=== PATIENT | male | born 1950 | race Caucasian/White ===

== ENCOUNTER → 2016-04-06 | Outpatient (CLI) | payer MEDICARE, BC ==
[2016-04-06 12:11] LABS: ALT 51 U/L (21-72); AST 39 U/L (17-59); Alkaline Phosphatase 63 U/L (38-126); Anion Gap 13 mmol/L; Blood Urea Nitrogen 19 mg/dL (9-20); Calcium 9.8 mg/dL (8.4-10.2); Carbon Dioxide 24 mmol/L (22-30); Chloride 103 mmol/L (98-107); Cholesterol 155 mg/dL (<200); Glucose 253 mg/dL (74-99); HDL Cholesterol 36 mg/dL (40-60); Non-African American GFR(MDRD) 51 (>60 ml/min/1.73 sqM); Sodium 140 mmol/L (137-145); Total Bilirubin 0.9 mg/dL (0.2-1.3); Total Protein 8.1 g/dL (6.3-8.2); Triglycerides 183 mg/dL (<150)
[2016-04-06 12:17] LABS: Potassium 5.8 mmol/L (3.5-5.1)
== END | disposition home or self-care (01) ==
LOC: LABWHC1 11:06
PROVIDERS: ATTEND Internal Medicine Interventional Cardiology
DX: E78.2 Mixed hyperlipidemia (principal)
CPT/HCPCS: 36415; 80053; 80061

== ENCOUNTER → 2016-10-13 | Outpatient (CLI) | payer MEDICARE, BC ==
[2016-10-13 14:18] LABS: Calcium 9.7 mg/dL (8.4-10.2); Potassium 4.8 mmol/L (3.5-5.1); Total Bilirubin 0.6 mg/dL (0.2-1.3); Total Protein 7.5 g/dL (6.3-8.2)
== END | disposition home or self-care (01) ==
LOC: LABWHC1 13:26
PROVIDERS: ATTEND Internal Medicine Interventional Cardiology
DX: E78.2 Mixed hyperlipidemia (principal)
CPT/HCPCS: 36415; 80053; 80061

== ENCOUNTER → 2017-04-18 | Outpatient (CLI) | payer MEDICARE, BC ==
[2017-04-18 12:47] LABS: Albumin 4.7 g/dL (3.5-5.0); Potassium 4.8 mmol/L (3.5-5.1); Total Bilirubin 0.6 mg/dL (0.2-1.3); Total Protein 7.9 g/dL (6.3-8.2)
== END | disposition home or self-care (01) ==
LOC: LABWHC1 12:02
PROVIDERS: ATTEND Internal Medicine Interventional Cardiology
DX: E78.2 Mixed hyperlipidemia (principal)
CPT/HCPCS: 36415; 80053; 80061

== ENCOUNTER → 2017-06-07 | Outpatient (CLI) | payer MEDICARE, BC ==
[2017-06-07 12:40] LABS: Basophils # (A) 0.1 k/uL (0-0.2); Basophils % (A) 1 %; Eosinophils # (A) 0.2 k/uL (0-0.7); Eosinophils % (A) 4 %; HCT 42.2 % (39.0-53.0); HGB 14.2 gm/dL (13.0-17.5); Lymphocytes # (A) 1.3 k/uL (1.0-4.8); Lymphocytes % (A) 32 %; MCH 31.4 pg (25.0-35.0); MCHC 33.6 g/dL (31.0-37.0); MCV 93.6 fL (80.0-100.0); Mean Platelet Volume 8.1; Monocytes # (A) 0.5 k/uL (0-1.0); Monocytes % (A) 12 %; Neutrophils % (A) 48 %; Platelet Count 205 k/uL (150-450); RDW 13.5 % (11.5-15.5); WBC 4.2 k/uL (3.8-10.6)
[2017-06-07 22:32] LABS: Hemoglobin A1C 7.9 % (4.0-6.0)
== END | disposition home or self-care (01) ==
LOC: LABWHC1 11:45
PROVIDERS: ATTEND Internal Medicine Endocrinology, Diabetes & Metabolism
DX: I10 Essential (primary) hypertension (principal); E78.00 Pure hypercholesterolemia, unspecified; I25.10 Atherosclerotic heart disease of native coronary artery without angina pectoris; E11.65 Type 2 diabetes mellitus with hyperglycemia
CPT/HCPCS: 36415; 82043; 82570; 83036; 85025

== ENCOUNTER → 2017-10-20 | Outpatient (CLI) | payer MEDICARE, BC ==
[2017-10-20 14:07] LABS: Albumin 4.1 g/dL (3.5-5.0); Calcium 9.1 mg/dL (8.4-10.2); Total Bilirubin 0.4 mg/dL (0.2-1.3); Total Protein 6.9 g/dL (6.3-8.2)
== END | disposition home or self-care (01) ==
LOC: LABWHC1 10:36
PROVIDERS: ATTEND Internal Medicine Interventional Cardiology
DX: E78.2 Mixed hyperlipidemia (principal)
CPT/HCPCS: 36415; 80053; 80061

== ENCOUNTER → 2017-12-26 | Outpatient (CLI) | payer MEDICARE, BC ==
[2017-12-26 14:35] LABS: HCT 42.3 % (39.0-53.0); HGB 14.4 gm/dL (13.0-17.5); MCH 32.8 pg (25.0-35.0); MCV 96.5 fL (80.0-100.0); Mean Platelet Volume 7.7; Platelet Count 178 k/uL (150-450); RBC 4.39 m/uL (4.30-5.90); RDW 13.3 % (11.5-15.5); WBC 3.5 k/uL (3.8-10.6)
[2017-12-26 14:51] LABS: Potassium 5.3 mmol/L (3.5-5.1)
== END | disposition home or self-care (01) ==
LOC: LABPAT 13:15
PROVIDERS: ATTEND Internal Medicine Interventional Cardiology
DX: Z01.812 Encounter for preprocedural laboratory examination (principal); I25.10 Atherosclerotic heart disease of native coronary artery without angina pectoris; I10 Essential (primary) hypertension; E78.2 Mixed hyperlipidemia
CPT/HCPCS: 36415; 80051; 82565; 84520; 85027

== ENCOUNTER → 2018-04-05 | Outpatient (CLI) | payer MEDICARE, BC ==
[2018-04-05 15:53] LABS: Albumin 4.6 g/dL (3.80-4.90); Albumin/Globulin Ratio 1.77 (1.60-3.17); Anion Gap 7.8 mmol/L (4.00-12.00); Calcium 9.3 mg/dL (8.7-10.3); Carbon Dioxide 26.2 mmol/L (21.6-31.8); Globulin 2.6 g/dL (1.6-3.3); LDL Cholesterol,Calculated 89.8 mg/dL (0.0-131.0); Total Bilirubin 0.5 mg/dL (0.3-1.2); Total Protein 7.2 g/dL (6.2-8.2); VLDL Calculation 19.2 mg/dL (5.00-40.00)
[2018-04-05 16:42] LABS: Hemoglobin A1C 8.8 % (4.0-6.0)
== END | disposition home or self-care (01) ==
LOC: LABWHC1 10:44
PROVIDERS: ATTEND Internal Medicine Endocrinology, Diabetes & Metabolism
DX: E11.65 Type 2 diabetes mellitus with hyperglycemia (principal)
CPT/HCPCS: 36415; 80053; 80061; 82043; 82570; 82607; 83036

== ENCOUNTER → 2018-07-10 | Outpatient (CLI) | payer MEDICARE, BC ==
[2018-07-10 16:40] LABS: Albumin 4.6 g/dL (3.80-4.90); Albumin/Globulin Ratio 1.84 (1.60-3.17); Calcium 9.1 mg/dL (8.7-10.3); Globulin 2.5 g/dL (1.6-3.3); LDL Cholesterol,Calculated 79.2 mg/dL (0.0-131.0); Potassium 4.8 mmol/L (3.5-5.5); Total Bilirubin 0.4 mg/dL (0.2-1.2); Total Protein 7.1 g/dL (6.2-8.2); VLDL Calculation 21.8 mg/dL (5.00-40.00)
[2018-07-10 19:40] LABS: Hemoglobin A1C 7.5 % (4.0-6.0)
== END ==
LOC: LABWHC1 11:44
PROVIDERS: ATTEND Internal Medicine Endocrinology, Diabetes & Metabolism
DX: E11.65 Type 2 diabetes mellitus with hyperglycemia (principal)
CPT/HCPCS: 36415; 80053; 80061; 83036; 84443

== ENCOUNTER → 2018-09-29 | Outpatient (CLI) | payer MEDICARE, BC ==
[2018-09-29 19:59] LABS: African American GFR (CKD) 49.8 (60.0-200.0); Albumin 4.4 g/dL (3.80-4.90); Albumin/Globulin Ratio 1.83 (1.60-3.17); Anion Gap 8.9 mmol/L (4.00-12.00); BUN/Creat Ratio 17.5 Ratio (12.00-20.00); Calcium 9.1 mg/dL (8.7-10.3); Carbon Dioxide 25.1 mmol/L (21.6-31.8); Globulin 2.4 g/dL (1.6-3.3); Total Bilirubin 0.5 mg/dL (0.3-1.2); Total Protein 6.8 g/dL (6.2-8.2)
== END ==
LOC: LABWHC1 14:03
PROVIDERS: ATTEND Internal Medicine Interventional Cardiology
DX: E78.2 Mixed hyperlipidemia (principal)
CPT/HCPCS: 36415; 80053; 80061

== ENCOUNTER → 2018-11-22 | Outpatient (CLI) | payer MEDICARE, BC ==
[2018-11-22 21:54] LABS: Chol/HDL Ratio 3.38; LDL Cholesterol,Calculated 57.6 mg/dL (0.0-131.0); VLDL Calculation 18.4 mg/dL (5.00-40.00)
== END | disposition home or self-care (01) ==
LOC: LABWHC1 12:12
PROVIDERS: ATTEND Nurse Practitioner Adult Health
DX: E78.2 Mixed hyperlipidemia (principal)
CPT/HCPCS: 36415; 80061; 84450; 84460

== ENCOUNTER → 2019-04-04 | Outpatient (CLI) | payer MEDICARE, BC ==
[2019-04-04 16:21] LABS: Chol/HDL Ratio 3.48; LDL Cholesterol,Calculated 66.2 mg/dL (0.0-131.0); VLDL Calculation 15.8 mg/dL (5.00-40.00)
== END | disposition home or self-care (01) ==
LOC: LABWHC1 11:46
PROVIDERS: ATTEND Nurse Practitioner Adult Health
DX: E78.2 Mixed hyperlipidemia (principal)
CPT/HCPCS: 36415; 80061; 84450; 84460

== ENCOUNTER → 2019-10-04 | Outpatient (CLI) | payer MEDICARE, BC ==
[2019-10-04 18:59] LABS: African American GFR (CKD) 42.9 (60.0-200.0); Albumin 4.5 g/dL (3.80-4.90); Albumin/Globulin Ratio 1.73 (1.60-3.17); Anion Gap 6.6 mmol/L (4.00-12.00); BUN/Creat Ratio 15.56 Ratio (12.00-20.00); Calcium 9.4 mg/dL (8.7-10.3); Carbon Dioxide 26.4 mmol/L (21.6-31.8); Chol/HDL Ratio 3.25; Globulin 2.6 g/dL (1.6-3.3); Potassium 5.1 mmol/L (3.5-5.5); Total Bilirubin 0.5 mg/dL (0.2-1.2); Total Protein 7.1 g/dL (6.2-8.2)
== END | disposition home or self-care (01) ==
LOC: LABWHC1 11:45
PROVIDERS: ATTEND Internal Medicine Interventional Cardiology
DX: E78.2 Mixed hyperlipidemia (principal)
CPT/HCPCS: 36415; 80053; 80061

== ENCOUNTER → 2019-12-11 | Outpatient (CLI) | payer MEDICARE, BC ==
[2019-12-11 22:19] LABS: African American GFR (CKD) 49.5 (60.0-200.0); Albumin 4.5 g/dL (3.80-4.90); Albumin/Globulin Ratio 1.73 (1.60-3.17); Anion Gap 8.7 mmol/L (4.00-12.00); BUN/Creat Ratio 13.13 Ratio (12.00-20.00); Calcium 9.2 mg/dL (8.7-10.3); Carbon Dioxide 24.3 mmol/L (21.6-31.8); Chol/HDL Ratio 3.48; Globulin 2.6 g/dL (1.6-3.3); Non-African American GFR(CKD) 42.7 (60.0-200.0); Potassium 4.8 mmol/L (3.5-5.5); Total Bilirubin 0.5 mg/dL (0.2-1.2); Total Protein 7.1 g/dL (6.2-8.2)
[2019-12-12 05:07] LABS: Urine Creatinine 57.2 mg/dL
== END | disposition home or self-care (01) ==
LOC: LABWHC1 13:17
PROVIDERS: ATTEND Internal Medicine Endocrinology, Diabetes & Metabolism
DX: E11.65 Type 2 diabetes mellitus with hyperglycemia (principal)
CPT/HCPCS: 36415; 80053; 80061; 82043; 82570; 83036; 84443

== ENCOUNTER → 2020-05-14 | Outpatient (CLI) | payer MEDICARE, BC ==
[2020-05-15 03:55] LABS: Chol/HDL Ratio 4.25; LDL Cholesterol,Calculated 65.8 mg/dL (0.0-131.0); VLDL Calculation 25.2 mg/dL (5.00-40.00)
== END | disposition home or self-care (01) ==
LOC: LABWHC1 08:39
PROVIDERS: ATTEND Nurse Practitioner Adult Health
DX: E78.2 Mixed hyperlipidemia (principal)
CPT/HCPCS: 36415; 80061; 84450; 84460

== ENCOUNTER → 2020-06-12 | Outpatient (CLI) | payer MEDICARE, BC ==
--- NOTE | 2020-06-12 14:23 | CONS ---
CONSULTATION DATE OF SERVICE: 06/12/2020 This 69-year-old gentleman who has been re-evaluated in Sleep Center for obstructive sleep apnea-hypopnea syndrome. HISTORY OF PRESENT HISTORY/SLEEP-WAKE EVALUATION: Patient has history of obstructive sleep apnea for about 15 years. Last CPAP titration in 2006. The patient continued to use CPAP equipment every night for the whole night. Sleep schedule presently from 3 a.m. until 10 a.m. Sometimes patient has problems with falling asleep, although no TV in bedroom. He usually sleeps on the back and side position, may wake up from sleep up to 3 times without nocturia. During the day, he may take one nap late afternoon. [place] Sleepiness Scale today is 9. PAST MEDICAL HISTORY: Positive for coronary artery disease, hypertension, hyperlipidemia, diabetes mellitus. PAST SURGICAL HISTORY: Hernia repair, stent insertion to coronary arteries. MEDICATIONS: Plavix 75 mg once a day, metoprolol 100 mg once a day, Imdur 60 mg once a day, simvastatin 40 mg once a day, Tricor 160 mg once a day, Glipizide 10 mg twice a day, aspirin 81 mg once a day, 10 mg once a day, Lantus 40 units at bedtime. SOCIAL HISTORY: Negative for smoking or using alcohol. REVIEW OF SYSTEMS: Sometimes awakenings from sleep. No fevers. No double vision. No recent chest pain. No shortness of breath. No abdominal pain. No bleeding episodes. No blood in the urine. No seizure episodes. FAMILY HISTORY: Hypertension, heart problems, asthma, cancer, diabetes. PHYSICAL EXAMINATION: GENERAL: gentleman without distress. VITAL SIGNS: BP 127/67, HR 65, RR 12, height 5 feet 10 inches, weight 199.6, temperature 97.3, oxygen saturation at room air 96%, BMI 28.5. HEENT: PERRLA, EOMI. Oropharynx low position of soft palate. Mallampati 3. NECK: Supple, no JVD. Thyroid is not palpable. LUNGS: Clear to percussion and to auscultation. Good air exchange. No wheezing or rhonchi. HEART: S1, S2 regular. No murmurs, gallops, or rubs. ABDOMEN: Obese. EXTREMITIES: No clubbing or cyanosis. JAVA SWING DEVELOPER: Awake, alert, and oriented X3. Cranial nerves 2 to 7 intact. There is no fasciculation or atrophy. noted. No focal deficits observed. I checked patient's CPAP unit. CPAP pressure of 11 cm of water. Usage is 29 out of 30 nights for more than 4 hours. Average usage is 6.7 hours per night. Leak is quite high 80 L/minute, but apnea-hypopnea index is only 4.7, which is normal range. IMPRESSION: 1. Obstructive sleep apnea-hypopnea syndrome. The patient demonstrated great compliance with CPAP therapy, benefitting from treatment. 2. Coronary artery disease, status post stent insertions. 3. Hypertension. 4. Diabetes mellitus. 5. Hyperlipidemia. 6. Status post hernia repair. PLAN: 1. The patient will continue to use CPAP equipment every night for the whole night. 2. Sleep hygiene with regular time in bed for 7-1/2 to 8 hours. 3. Prescription for all necessary CPAP supplies, including mask, heated tube, filters, chamber for the machine. 4. Precautions related to driving. No driving if feeling any sleepiness. 5. Follow-up visit in 6 months. Thank you very much for allowing me to participate in management of your patient. Sincerely, Gilbert Paz MD, PhD, FAASM Diplomat of [employer] Director Treasurer of [facility] [place] MMODL / IJN: [id number] /
== END ==
LOC: SLEEP 10:00
PROVIDERS: ATTEND Internal Medicine
DX: G47.33 Obstructive sleep apnea (adult) (pediatric) (principal); I25.10 Atherosclerotic heart disease of native coronary artery without angina pectoris; I10 Essential (primary) hypertension; E11.9 Type 2 diabetes mellitus without complications; Z98.890 Other specified postprocedural states
CPT/HCPCS: 99211

== ENCOUNTER → 2020-08-21 | Outpatient (CLI) | payer MEDICARE, BC ==
[2020-08-21 19:46] LABS: Hemoglobin A1C 7.9 % (4.0-6.0)
[2020-08-21 20:18] LABS: African American GFR (CKD) 49.2 (60.0-200.0); Albumin 4.6 g/dL (3.80-4.90); Albumin/Globulin Ratio 1.7 (1.60-3.17); Anion Gap 6.1 mmol/L (4.00-12.00); BUN/Creat Ratio 16.88 Ratio (12.00-20.00); Calcium 9.2 mg/dL (8.7-10.3); Carbon Dioxide 26.9 mmol/L (21.6-31.8); Chol/HDL Ratio 3.6; Globulin 2.7 g/dL (1.6-3.3); LDL Cholesterol,Calculated 63.2 mg/dL (0.0-131.0); Non-African American GFR(CKD) 42.4 (60.0-200.0); Potassium 4.8 mmol/L (3.5-5.5); Total Bilirubin 0.4 mg/dL (0.3-1.2); Total Protein 7.3 g/dL (6.2-8.2); VLDL Calculation 14.8 mg/dL (5.00-40.00)
[2020-08-22 04:39] LABS: Urine Creatinine 189.5 mg/dL
== END | disposition home or self-care (01) ==
LOC: LABWHC1 11:01
PROVIDERS: ATTEND Internal Medicine Endocrinology, Diabetes & Metabolism
DX: E11.65 Type 2 diabetes mellitus with hyperglycemia (principal)
CPT/HCPCS: 36415; 80053; 80061; 82043; 82570; 83036; 84443

== ENCOUNTER → 2020-11-25 | Outpatient (CLI) | payer MEDICARE, BC ==
[2020-11-27 02:16] LABS: African American GFR (CKD) 42.6 (60.0-200.0); Albumin 4.6 g/dL (3.8-4.9); Albumin/Globulin Ratio 1.7 (1.60-3.17); Anion Gap 14.6 mmol/L (4.00-12.00); BUN/Creat Ratio 14.67 Ratio (12.00-20.00); Blood Urea Nitrogen 26.4 mg/dL (9.0-27.0); Calcium 9.4 mg/dL (8.7-10.3); Carbon Dioxide 19.4 mmol/L (21.6-31.8); Chol/HDL Ratio 3.39 Ratio; Globulin 2.7 g/dL (1.6-3.3); LDL Cholesterol,Calculated 59.3 mg/dL (0.0-131.0); Non-African American GFR(CKD) 36.8 (60.0-200.0); Potassium 4.9 mmol/L (3.5-5.5); Total Bilirubin 0.4 mg/dL (0.30-1.20); Total Protein 7.3 g/dL (6.2-8.2); Triglycerides 98.3 mg/dL (0.00-149.00); VLDL Calculation 19.66 mg/dL (5.00-40.00)
== END | disposition home or self-care (01) ==
LOC: LABWHC1 10:36
PROVIDERS: ATTEND Internal Medicine Interventional Cardiology
DX: E78.2 Mixed hyperlipidemia (principal)
CPT/HCPCS: 36415; 80053; 80061

== ENCOUNTER → 2020-12-18 | Outpatient (CLI) | payer MEDICARE, BC ==
--- NOTE | 2020-12-18 19:49 | SFUN ---
SLEEP CENTER FOLLOW UP NOTE DATE OF SERVICE: 12/18/2020 This 70-year-old gentleman has been followed in Sleep Center for treatment of obstructive sleep apnea-hypopnea syndrome. The patient continues to use his CPAP equipment every night. His machine, which I saw during his previous visit on 06/12/2020, was broken and he started to use his old CPAP unit. He continues to use his CPAP equipment every night. He does not snore with the machine and sleeps well. [place] Sleepiness Scale today is 9. I checked his CPAP unit. Its pressure is 11 cm of water. Usage is 28/30 nights for more than 4 hours, average 6.3 hours per night, which is good compliance. The pressure in the machine is 11 cm of water. The machine does not have information about apnea- hypopnea index, but again during the previous visit with a different machine, with a pressure of 11, apnea-hypopnea index was 4.7, which is in normal range. MEDICATIONS: 1. Isosorbide 60 mg once a day. 2. Clopidogrel 75 mg once a day. 3. Metoprolol 100 mg once a day. 4. Fenofibrate 160 mg once a day. 5. Simvastatin 40 mg once a day. 6. 10 mg once a day. 7. Aspirin 81 mg once a day. 8. Glipizide 10 mg twice a day. 9. Lantus 40 units once a day. PHYSICAL EXAMINATION: GENERAL: Pleasant patient in no distress. VITAL SIGNS: BP 134/69, HR 67, RR 16, height 5 feet 9 inches, weight 200 pounds, which is about the same as during previous visit. Body mass index 29.5, temperature 97.2, oxygen saturation at room air 96%. HEENT: PERRLA, EOMI, evaluation of oropharynx showed tongue protrudes midline. Low position of soft palate; Mallampati III. NECK: Supple, no JVD. Thyroid is not palpable. LUNGS: Clear to percussion and to auscultation. Good air exchange. No wheezing or rhonchi. HEART: S1, S2 regular. No murmurs, gallops, or rubs. ABDOMEN: Soft and nontender. Bowel sounds are present. No organomegaly appreciated. EXTREMITIES: No clubbing or cyanosis. QA CONSULTANT: Awake, alert, and oriented X3. Cranial nerves 2 to 7 intact. There is no fasciculation or atrophy. noted. No focal deficits observed. IMPRESSION: 1. Obstructive sleep apnea-hypopnea syndrome. Patient demonstrated great compliance with treatment, benefitting from treatment. 2. Coronary artery disease, status post stent insertion. 3. Hypertension. 4. Diabetes mellitus. 5. Hyperlipidemia. 6. Status post hernia repair. PLAN: 1. Patient will continue to use PAP equipment every night for the whole night. 2. Sleep hygiene with regular time in bed for at least 7-1/2 to 8 hours. 3. Precautions related to driving. No driving if feeling sleepiness. 4. I will maintain all necessary prescription for PAP supplies including mask, tube, filters. 5. Watching weight. 6. During the next visit, we will consider writing a prescription for a new machine; we should have a new version of ResMed machine available at that time. 7. Follow-up visit in 6 months or earlier if patient has any problems. Thank you very much for allowing me to participate in the management of your patient. Sincerely, Gilbert Paz MD, PhD, FAASM Diplomat of [employer] Sleep Medicine Board of [employer] Manager Packaging of [facility] [place] MMODL / IJN: [id number] /
== END | disposition home or self-care (01) ==
LOC: SLEEP 13:22
PROVIDERS: ATTEND Internal Medicine
DX: G47.33 Obstructive sleep apnea (adult) (pediatric) (principal); I25.10 Atherosclerotic heart disease of native coronary artery without angina pectoris; Z95.5 Presence of coronary angioplasty implant and graft; I10 Essential (primary) hypertension; E11.9 Type 2 diabetes mellitus without complications; E78.5 Hyperlipidemia, unspecified

== ENCOUNTER → 2021-06-18 | Outpatient (CLI) | payer MEDICARE, BC ==
--- NOTE | 2021-06-18 14:59 | SFUN ---
SLEEP CENTER FOLLOW UP NOTE DATE OF SERVICE: 06/18/2021 This 70-year-old gentleman has been followed in Sleep Center for treatment of obstructive sleep apnea-hypopnea syndrome. The patient continues to use his CPAP equipment every night for the whole night and is getting his supplies on time. I checked his CPAP unit. Usage is 30/30 nights for more than 4 hours, average 6.2 hours per night. Pressure is 11 cm of water, starting at 8 cm of water from RAMP. EPR 3. The machine is old and does not have information about apnea-hypopnea index. [place] Sleepiness Scale is 9, which is on the border. MEDICATIONS: Plavix, metoprolol, fenofibrate, simvastatin, Imdur, glyburide, Lantus, gabapentin. PHYSICAL EXAMINATION: GENERAL: Pleasant patient in no distress. VITAL SIGNS: BP 116/70, HR 55, RR 16, weight 197.5, temperature 97.2, oxygen saturation at room air 95%. HEENT: PERRLA, EOMI, evaluation of oropharynx showed tongue protrudes midline. Low position of soft palate; Mallampati III. NECK: Supple, no JVD. Thyroid is not palpable. LUNGS: Clear to percussion and to auscultation. Good air exchange. No wheezing or rhonchi. HEART: S1, S2 regular. No murmurs, gallops, or rubs. ABDOMEN: Soft and nontender. Bowel sounds are present. No organomegaly appreciated. EXTREMITIES: No clubbing or cyanosis. ALUMINUM SIDING APPLICATOR: Awake, alert, and oriented X3. Cranial nerves 2 to 7 intact. There is no fasciculation or atrophy. noted. No focal deficits observed. IMPRESSION: 1. Obstructive sleep apnea-hypopnea syndrome. Patient demonstrated 100% compliance with treatment, benefitting from treatment. His CPAP unit is old and does not have information about apnea-hypopnea index. 2. Coronary artery disease, status post stent insertion. 3. Hypertension. 4. Diabetes mellitus. 5. Hyperlipidemia. 6. Status post hernia repair. PLAN: 1. Prescription to replace CPAP unit. I ordered an automatic machine with range of pressure 7 to 13. 2. Follow-up visit in 30 to 90 days after the patient receives his new CPAP unit to document his compliance with treatment and to make any necessary adjustments. 3. Sleep hygiene with regular time in bed for at least 7-1/2 to 8 hours. 4. Precautions related to driving. No driving if feeling sleepiness. 5. I will maintain all necessary prescription for PAP supplies including mask, tube, filters. 6. Watching weight. Thank you very much for allowing me to participate in the management of your patient. Sincerely, Gilbert Paz MD, PhD, FAASM Diplomat of [employer] Sleep Medicine Board of [employer] Abalone Fisherman of [facility] [place] MMODL / CADYN: [id number] /
== END | disposition home or self-care (01) ==
LOC: SLEEP 13:05
PROVIDERS: ATTEND Internal Medicine
DX: G47.33 Obstructive sleep apnea (adult) (pediatric) (principal); I25.10 Atherosclerotic heart disease of native coronary artery without angina pectoris; I10 Essential (primary) hypertension; E11.9 Type 2 diabetes mellitus without complications; E78.5 Hyperlipidemia, unspecified; Z98.890 Other specified postprocedural states

== ENCOUNTER → 2021-11-24 | Outpatient (CLI) | payer MEDICARE, BC ==
[2021-11-24 15:09] LABS: ALT 20 U/L (10-49); AST 22 U/L (14-35); African American GFR (CKD) 45.7 (60.0-200.0); Albumin 4.4 g/dL (3.8-4.9); Albumin/Globulin Ratio 1.66 (1.60-3.17); Alkaline Phosphatase 63 U/L (41-126); Blood Urea Nitrogen 31.1 mg/dL (9.0-27.0); Calcium 9.3 mg/dL (8.7-10.3); Carbon Dioxide 27.5 mmol/L (20.0-27.5); Chloride 105 mmol/L (96-109); Chol/HDL Ratio 3.58 Ratio; Globulin 2.7 g/dL (1.6-3.3); Glucose 253 mg/dL (70-110); LDL Cholesterol,Calculated 61.2 mg/dL (0.0-131.0); Non-African American GFR(CKD) 39.4 (60.0-200.0); Sodium 140 mmol/L (135-145); Total Protein 7.1 g/dL (6.2-8.2); VLDL Calculation 19.52 mg/dL (5.00-40.00)
== END | disposition home or self-care (01) ==
LOC: LABWHC1 09:32
PROVIDERS: ATTEND Internal Medicine Interventional Cardiology
DX: E78.2 Mixed hyperlipidemia (principal)
CPT/HCPCS: 36415; 80053; 80061

== ENCOUNTER → 2022-03-03 | Outpatient (CLI) | payer MEDICARE, BC ==
[2022-03-03 19:32] LABS: ALT 32 U/L (10-49); AST 23 U/L (14-35); African American GFR (CKD) 70.5 (60.0-200.0); Albumin 4.2 g/dL (3.8-4.9); Albumin/Globulin Ratio 1.47 (1.60-3.17); Alkaline Phosphatase 69 U/L (41-126); BUN/Creat Ratio 12.37 Ratio (12.00-20.00); Blood Urea Nitrogen 14.6 mg/dL (9.0-27.0); Calcium 9.5 mg/dL (8.7-10.3); Carbon Dioxide 26.8 mmol/L (20.0-27.5); Chloride 103 mmol/L (96-109); Chol/HDL Ratio 4.06 Ratio; Globulin 2.9 g/dL (1.6-3.3); Glucose 164 mg/dL (70-110); Non-African American GFR(CKD) 60.9 (60.0-200.0); Potassium 4.9 mmol/L (3.5-5.5); Sodium 140 mmol/L (135-145); Total Protein 7.1 g/dL (6.2-8.2)
== END | disposition home or self-care (01) ==
LOC: LABWHC1 12:41
PROVIDERS: ATTEND Internal Medicine Endocrinology, Diabetes & Metabolism
DX: E11.65 Type 2 diabetes mellitus with hyperglycemia (principal)
CPT/HCPCS: 36415; 80053; 80061; 82043; 82570; 83036; 84443

== ENCOUNTER → 2022-05-17 | Outpatient (CLI) | payer MEDICARE, BC ==
[2022-05-17 23:49] LABS: ALT 47 U/L (10-49); AST 34 U/L (14-35); African American GFR (CKD) 65.8 (60.0-200.0); Albumin 4.6 g/dL (3.8-4.9); Albumin/Globulin Ratio 1.54 (1.60-3.17); Alkaline Phosphatase 87 U/L (41-126); BUN/Creat Ratio 13.44 Ratio (12.00-20.00); Blood Urea Nitrogen 16.8 mg/dL (9.0-27.0); Calcium 9.7 mg/dL (8.7-10.3); Chloride 105 mmol/L (96-109); Chol/HDL Ratio 3.65 Ratio; Glucose 189 mg/dL (70-110); LDL Cholesterol,Calculated 51.6 mg/dL (0.0-131.0); Non-African American GFR(CKD) 56.8 (60.0-200.0); Potassium 5.4 mmol/L (3.5-5.5); Sodium 140 mmol/L (135-145); Total Protein 7.6 g/dL (6.2-8.2)
== END | disposition home or self-care (01) ==
LOC: LABWHC1 13:43
PROVIDERS: ATTEND Internal Medicine Interventional Cardiology
DX: I10 Essential (primary) hypertension (principal); E78.2 Mixed hyperlipidemia
CPT/HCPCS: 36415; 80053; 80061

== ENCOUNTER → 2022-06-03 | Outpatient (CLI) | payer MEDICARE, BC ==
[2022-06-03 17:22] LABS: HCT 37.6 % (39.0-53.0); HGB 12.9 gm/dL (13.0-17.5); MCH 32.7 pg (25.0-35.0); MCHC 34.4 g/dL (31.0-37.0); MCV 95.1 fL (80.0-100.0); Platelet Count 163 k/uL (150-450); RBC 3.95 m/uL (4.30-5.90); RDW 13.9 % (11.5-15.5); WBC 3.9 k/uL (3.8-10.6)
[2022-06-03 17:30] LABS: Potassium 4.5 mmol/L (3.5-5.1)
== END | disposition home or self-care (01) ==
LOC: LABPAT 14:56
PROVIDERS: ATTEND Internal Medicine Interventional Cardiology
DX: Z01.812 Encounter for preprocedural laboratory examination (principal); I25.10 Atherosclerotic heart disease of native coronary artery without angina pectoris
CPT/HCPCS: 80051; 82565; 84520; 85027

== ENCOUNTER 2022-06-09 10:13 | Day surgery (SDC) | payer MEDICARE, BC ==
[~2022-06-09 10:13] MED LIST: ALPRAZolam 0.25 MG TAB PO PRN; ALPRAZolam 0.5 MG TAB PO PRN; ASPIRIN 325 MG TAB PO ONE; ATORVASTATIN 80 MG TAB PO ONE; HEPARIN SODIUM,PORCINE 10,000 UNIT in SODIUM CHLORIDE 0.9% 1,000 ML IRRIGATION PRN; HEPARIN SODIUM,PORCINE 2,500 UNIT in SODIUM CHLORIDE 0.9% 250 ML IRRIGATION PRN; NITROGLYCERIN SL TABS 0.4 MG TAB SUBLINGUAL PRN; SODIUM CHLORIDE 0.9% 1,000 ML in EMPTY BAG 1 BAG IV SCH
[2022-06-09] MEDS ORDERED: SODIUM CHLORIDE 0.9% 1,000 ML IV ONE (10:37)
[2022-06-09 10:50] LABS: Glucose,Whole Blood 162 mg/dL (70-110)
[2022-06-09 10:54] VITALS: RESP 16; TEMP 97.9
[2022-06-09] MEDS ORDERED: fentaNYL (PF) 50 MCG/ML 2 ML AMP IVP ONE (12:30)
[2022-06-09] MEDS ORDERED: LIDOCAINE 1% INJ 10MG/ML (5 ML VIAL-PF) SQ ONE (12:33)
[2022-06-09] MEDS ORDERED: VERAPAMIL SYRINGE (5 MG/10 ML) INTRAARTER ONE (12:34)
[2022-06-09] MEDS ORDERED: MIDAZOLAM 2 MG/2 ML VIAL IVP ONE (12:34)
[2022-06-09] MEDS: HEPARIN SODIUM 1,000 UN/ML (10ML VL) IVP ONE ×2 (12:40→12:52)
[2022-06-09] MEDS ORDERED: NITROGLYCERIN 1000MCG/10ML SYRINGE INTRACORON ONE (12:58)
[2022-06-09] MEDS ORDERED: IOPAMIDOL-370 125ML BTL INJ ONE ×2 (12:59→13:00)
[2022-06-09] MEDS ORDERED: RX INFO: IV CONTRAST WAS GIVEN 1 EACH MISC MISCELLANE PRN (13:29)
[2022-06-09] MEDS ORDERED: NON FORMULARY DRUG (Semaglutide [Ozempic] 0.25 MG/0.2 ML Each) PO SCH (13:30)
[2022-06-09] MEDS ORDERED: SODIUM CHLORIDE 0.9% 1,000 ML IV SCH (13:30)
--- NOTE | 2022-06-09 13:37 | P.CARDCATH ---
Date of Procedure: 06/09/22 Description of Procedure: Cardiac Catheterization: The patient is a 71-year-old male with known history of hypertension, hyperlipidemia, diabetes mellitus, multivessel stenting who has recently been complaining of progressive dyspnea and chest discomfort. Recommendations were made regarding cardiac catheterization, the risks and the complications were discussed with the patient who is in full understanding and agreement. Procedure Description: Patient was brought to labeling associate in fasting semi-sedated state after receiving Fentanyl and Benadryl achieiving moderate conscious sedated state. Using Xylocaine Anesthesia and Seldinger technique, a 6-Zimbabwean sheath was introduced in the right radial artery . Subsequently, selective coronary angiography was performed using a 5-Zimbabwean 3.5 bend Angélica catheter. Multiple views of the coronary artery including hemiaxial views were obtained. The 5-Zimbabwean Pigtail catheter was used to cross the aortic valve and LVEDP was calculated. After removing the catheters a 6-Zimbabwean 3.75 EBU guiding catheter is introduced and after cannulating the left main an Omini Doppler flow wire was advanced into the left circumflex OM and IFR was measured. Following that, catheter and sheath were removed. Hemostasis was obtained with deployment of TR band . There was no immediate complication. Patient was returned to room in stable condition. Of note, the patient received a total of 5500 units of intravenous heparin as well as intra-arterial verapamil. Findings: Left main: This is a large size vessel, bifurcating into LAD and left circumflex, the distal left main has 20% plaque. LAD: This is a large size vessel, reaching to the apex, giving rise to a small diagonal branch in the mid segment. The stented segment in the proximal and mid LAD are patent the mid distal LAD has intimal disease of about 50%, the vessel in caliber in that segment. Left circumflex: This is a large nondominant vessel, giving rise to 2 obtuse marginal branch. The stented segment in the left circumflex obtuse marginal branch is patent with no significant in-stent restenosis. The proximal left circumflex is tortuous and has a 50% plaque. There is of the vessel has no high-grade stenosis. RCA: This is a dominant vessel, moderate caliber. The stented segment in the proximal and mid RCA is patent distal RCA has a 40-50% plaque. Diffuse intimal disease in the PDA was noted with no high-grade stenosis. Left Ventriculogram: Not performed Hemodynamics: There was no gradient across the aortic valve , LVEDP was 15 mmHg Conclusion: 1. Patent stent in the LAD, left circumflex OM and RCA 2. Borderline lesion in the proximal left circumflex with IFR of 0.94, consistent with non-hemodynamically significant lesion 3. Right dominance 4. Normal LVEDP Recommendations: In view of the findings I see no significant progression of disease compared to 2018. I would maximize his medical therapy and depending on his response further recommendations will be made. The findings and the recommendations were discussed with the patient and the family and they were in full understanding and agreement. Duration of sedation is 29 minutes.
[2022-06-09 16:36] VITALS: BP 108/57; PULSE 61
[2022-06-09] MEDS ORDERED: glipiZIDE 10 MG TAB PO SCH (17:30)
[2022-06-09] MEDS ORDERED: ASPIRIN 325 MG TAB PO SCH (21:00)
[2022-06-09] MEDS ORDERED: NON FORMULARY DRUG (Simvastatin [Simvastatin] 40 MG Tablet) PO SCH (21:00)
[2022-06-09] MEDS ORDERED: METOPROLOL TARTRATE 50 MG TAB PO SCH (21:00)
[2022-06-09] MEDS ORDERED: CLOPIDOGREL 75 MG TAB PO SCH (21:00)
[2022-06-09] MEDS ORDERED: GABAPENTIN 300 MG CAP PO SCH (21:00)
[2022-06-09] MEDS ORDERED: ISOSORBIDE MONONITRATE ER 60 MG TAB.ER.24H PO SCH (21:00)
[2022-06-09] MEDS ORDERED: EZETIMIBE 10 MG TAB PO SCH (21:00)
== END 2022-06-09 16:34 | disposition home or self-care (01) ==
LOC: CATHCVL 10:13
PROVIDERS: ATTEND Internal Medicine Interventional Cardiology
DX: I25.10 Atherosclerotic heart disease of native coronary artery without angina pectoris (principal); I73.9 Peripheral vascular disease, unspecified; I12.9 Hypertensive chronic kidney disease with stage 1 through stage 4 chronic kidney disease, or unspecified chronic kidney disease; N18.9 Chronic kidney disease, unspecified; E78.5 Hyperlipidemia, unspecified; E11.9 Type 2 diabetes mellitus without complications; G47.33 Obstructive sleep apnea (adult) (pediatric); Z82.49 Family history of ischemic heart disease and other diseases of the circulatory system; Z79.82 Long term (current) use of aspirin; Z79.899 Other long term (current) drug therapy
CPT/HCPCS: 93458; 93799; J2250; J2001; J3010; J1644; Q9967; 80051; 82565; 84520; 85027

== ENCOUNTER → 2022-12-01 | Outpatient (CLI) | payer MEDICARE, BC ==
[2022-12-01 16:14] LABS: ALT 28 U/L (10-49); AST 26 U/L (14-35); Albumin 4.4 d/dL (3.8-4.9); Albumin/Globulin Ratio 1.69 Ratio (1.60-3.17); Alkaline Phosphatase 78 U/L (41-126); BUN/Creat Ratio 16.46 Ratio (12.00-20.00); Blood Urea Nitrogen 21.4 mg/dL (9.0-27.0); Calcium 9.4 mg/dL (8.7-10.3); Chloride 107 mmol/L (96-109); Chol/HDL Ratio 3.12 Ratio; Globulin 2.6 d/dL (1.6-3.3); Glucose 201 mg/dL (70-110); Potassium 4.9 mmol/L (3.5-5.5); Sodium 141 mmol/L (135-145); Total Bilirubin 0.5 mg/dL (0.3-1.2)
== END | disposition home or self-care (01) ==
LOC: LABWHC1 12:52
PROVIDERS: ATTEND Internal Medicine Interventional Cardiology
DX: E11.65 Type 2 diabetes mellitus with hyperglycemia (principal); E78.2 Mixed hyperlipidemia
CPT/HCPCS: 36415; 80053; 80061; 82043; 82570; 83036; 84443

== ENCOUNTER → 2023-06-08 | Outpatient (CLI) | payer MEDICARE, BC ==
[2023-06-08 18:44] LABS: ALT 40 U/L (10-49); AST 33 U/L (14-35); Albumin 4.7 g/dL (3.8-4.9); Albumin/Globulin Ratio 1.62 Ratio (1.60-3.17); Alkaline Phosphatase 86 U/L (41-126); BUN/Creat Ratio 20.55 Ratio (12.00-20.00); Blood Urea Nitrogen 22.6 mg/dL (9.0-27.0); Calcium 9.3 mg/dL (8.7-10.3); Carbon Dioxide 23.5 mmol/L (21.6-31.8); Chloride 106 mmol/L (96-109); Chol/HDL Ratio 3.36 Ratio; Globulin 2.9 g/dL (1.6-3.3); Glucose 177 mg/dL (70-110); LDL Cholesterol,Calculated 49.3 mg/dL (0.0-131.0); Potassium 4.3 mmol/L (3.5-5.5); Sodium 142 mmol/L (135-145); Total Bilirubin 0.5 mg/dL (0.3-1.2); Total Protein 7.6 g/dL (6.2-8.2)
== END | disposition home or self-care (01) ==
LOC: LABWHC1 13:27
PROVIDERS: ATTEND Internal Medicine Endocrinology, Diabetes & Metabolism
DX: E11.65 Type 2 diabetes mellitus with hyperglycemia (principal)
CPT/HCPCS: 36415; 80053; 80061; 82043; 82570; 83036; 84443

== ENCOUNTER → 2023-10-21 | Outpatient (CLI) | payer MEDICARE, BC | END | disposition home or self-care (01) | LOC: LABWHC1 13:54 | PROVIDERS: ATTEND Internal Medicine Endocrinology, Diabetes & Metabolism | DX: Z53.9 Procedure and treatment not carried out, unspecified reason (principal) ==

== ENCOUNTER → 2023-12-09 | Outpatient (CLI) | payer MEDICARE, BC ==
[2023-12-09 15:18] LABS: ALT 52 U/L (10-49); AST 39 U/L (14-35); Chol/HDL Ratio 3.23 Ratio; LDL Cholesterol,Calculated 40.5 mg/dL (0.0-131.0)
== END | disposition home or self-care (01) ==
LOC: LABWHC1 08:47
PROVIDERS: ATTEND Internal Medicine Interventional Cardiology
DX: E78.2 Mixed hyperlipidemia (principal)
CPT/HCPCS: 36415; 80061; 84450; 84460

== ENCOUNTER 2023-12-21 09:55 | Day surgery (SDC) | payer MEDICARE, BC ==
[~2023-12-21 09:55] MED LIST changes: -ASPIRIN 325 MG TAB PO ONE; -ATORVASTATIN 80 MG TAB PO ONE; +HEPARIN SODIUM,PORCINE (1 ML) 2,500 UNIT in SODIUM CHLORIDE 0.9% 250 ML IRRIGATION PRN; -HEPARIN SODIUM,PORCINE 2,500 UNIT in SODIUM CHLORIDE 0.9% 250 ML IRRIGATION PRN; -SODIUM CHLORIDE 0.9% 1,000 ML in EMPTY BAG 1 BAG IV SCH
[2023-12-21] MEDS: SODIUM CHLORIDE 0.9% 1,000 ML in EMPTY BAG 1 BAG IV SCH (10:14)
[2023-12-21 10:17] LABS: Glucose,Whole Blood 158 mg/dL (70-110)
[2023-12-21] MEDS: ASPIRIN 81 MG PO STA (10:29)
[2023-12-21 10:38] LABS: African American GFR (CKD) 61 (>60 ml/min/1.73 sqM); Anion Gap 9 mmol/L; Blood Urea Nitrogen 23 mg/dL (9-20); Calcium 9.3 mg/dL (8.4-10.2); Carbon Dioxide 27 mmol/L (22-30); Chloride 104 mmol/L (98-107); Glucose 162 mg/dL (74-99); Non-African American GFR(CKD) 53 (>60 ml/min/1.73 sqM); Potassium 4.2 mmol/L (3.5-5.1); Sodium 140 mmol/L (137-145)
[2023-12-21 10:55] LABS: Basophils % (A) 1 %; Eosinophils # (A) 0.2 k/uL (0-0.7); Eosinophils % (A) 3 %; HCT 41.1 % (39.0-53.0); HGB 13.8 gm/dL (13.0-17.5); Lymphocytes # (A) 2.2 k/uL (1.0-4.8); Lymphocytes % (A) 31 %; MCH 32.6 pg (25.0-35.0); MCHC 33.6 g/dL (31.0-37.0); MCV 96.9 fL (80.0-100.0); Mean Platelet Volume 8.2; Monocytes # (A) 0.4 k/uL (0-1.0); Monocytes % (A) 6 %; Neutrophils % (A) 58 %; Platelet Count 157 k/uL (150-450); RBC 4.24 m/uL (4.30-5.90); RDW 13.8 % (11.5-15.5); WBC 6.9 k/uL (3.8-10.6)
[2023-12-21] MEDS: IV FLUID CONTINUATION 1,000 ML IV ONE (12:50)
[2023-12-21] MEDS: fentaNYL (PF) 50 MCG/ML 2 ML AMP IVP ONE (12:50)
[2023-12-21] MEDS: LIDOCAINE 1% INJ 10MG/ML (20 ML MDV) SQ ONE (12:52)
[2023-12-21] MEDS: NITROGLYCERIN 1000MCG/10ML SYRINGE INTRACORON ONE (13:16)
[2023-12-21] MEDS: IOPAMIDOL-370 100ML BTL INJ ONE (13:24)
[2023-12-21] MEDS ORDERED: RX INFO: IV CONTRAST WAS GIVEN 1 EACH MISC MISCELLANE PRN (13:32)
--- NOTE | 2023-12-21 13:39 | P.CARDCATH ---
Date of Procedure: 12/21/23 Description of Procedure: Cardiac Catheterization: The patient is a 73-year-old male with known history of hypertension, hyperlipidemia, diabetes mellitus with multivessel stenting who presented with symptoms of progressive dyspnea fatigue and chest heaviness. Recommendations were made regarding cardiac catheterization, the risks and the complications were discussed with the patient who is in full understanding and agreement. Procedure Description: Patient was brought to company laborer in fasting semi-sedated state after receiving Fentanyl and Benadryl achieiving moderate conscious sedated state. Using Xylocaine Anesthesia and micropuncture technique, a 6-Burmese sheath was introduced in the right femoral artery . Attempt to advance the wire through the right radial artery were unsuccessful. Subsequently, selective coronary angiography was performed using a 6-Burmese 4 bend Angélica catheter. Multiple views of the coronary artery including hemiaxial views were obtained. The 6 Burmese pigtail catheter was used to cross the aortic valve and LVEDP was calculated. Following that, catheter and sheath were removed. Hemostasis was obtained with deployment of an Angio-Seal. There was no immediate complication. Patient was returned to room in stable condition. Findings: Left main: This is a large size vessel, bifurcating into LAD and left circumflex, the left main distally has 10 to 20% plaque with no high-grade stenosis LAD: This is a large size vessel, reaching to the apex with a wraparound apex segment giving rise to a small diagonal branch and mid segment. The stented LAD proximally and in the mid segment are patent with no significant in-stent restenosis. In the mid distal segment there is a tubular long area of stenosis up to 60% with no progression compared to 2023. Left circumflex: This is a large nondominant vessel, giving rise to a large obtuse marginal branch. The stented segment in the obtuse marginal branch is patent. The proximal left circumflex has 30 to 40% plaque with no significant change compared to 2023 RCA: This is a large dominant vessel, bifurcating distally to PDA and PLV. The right coronary artery proximally has a 30% plaque. In the distal segment there is a 50 to 60% plaque similar to what was found in 2023. The PDA has diffuse intimal disease with no high-grade stenosis Left Ventriculogram: Not performed Hemodynamics: There was no gradient across aortic valve, LVEDP was 14-16 mmHg Conclusion: 1. Patent stent in the LAD, left circumflex and RCA 2. Moderate disease in the mid distal LAD with no progression compared to 2022 3. Moderate disease in the distal RCA with no progression compared to 2022 4. Mild disease in the left circumflex Recommendations: At this time I see no significant progression of disease, I would recommend to continue medical therapy with the aggressive coronary risks modification that has been initiated. It is possible that some of the progression of symptoms is related to his bradycardia. His beta-candelaria will be stopped. Depending on his response further adjustment will be made. The findings and the recommendations were discussed with the patient and the family and they were in full understanding and agreement. Duration of sedation is 29 minutes.
[2023-12-21 16:40] LABS: African American GFR (CKD) 62 (>60 ml/min/1.73 sqM); Anion Gap 6 mmol/L; Blood Urea Nitrogen 21 mg/dL (9-20); Calcium 8.8 mg/dL (8.4-10.2); Carbon Dioxide 25 mmol/L (22-30); Chloride 107 mmol/L (98-107); Glucose 194 mg/dL (74-99); Non-African American GFR(CKD) 54 (>60 ml/min/1.73 sqM); Potassium 4.8 mmol/L (3.5-5.1); Sodium 138 mmol/L (137-145)
[2023-12-21 17:07] LABS: Glucose,Whole Blood 199 mg/dL (70-110)
[2023-12-21] MEDS: INSULIN ASPART (NovoLOG) 100 UNIT/ML VIAL SQ SCH (17:24)
[2023-12-21] MEDS: SODIUM CHLORIDE 0.9% 1,000 ML IV SCH (17:27)
[2023-12-21] MEDS: glipiZIDE 10 MG TAB PO SCH (18:47)
[2023-12-21] MEDS: ASPIRIN 325 MG TAB PO STA (19:31)
[2023-12-21] MEDS: ATORVASTATIN 80 MG TAB PO STA (19:31)
[2023-12-21 20:00] LABS: Glucose,Whole Blood 169 mg/dL (70-110)
[2023-12-21] MEDS: GABAPENTIN 300 MG CAP PO SCH (20:42)
[2023-12-21] MEDS: ASPIRIN 81 MG PO SCH (20:42)
[2023-12-21] MEDS: ATORVASTATIN 20 MG TAB PO SCH (20:42)
[2023-12-21] MEDS: EZETIMIBE 10 MG TAB PO SCH (20:42)
[2023-12-21] MEDS: INSULIN DETEMIR (LEVEMIR) 100 UNIT/ML SYR SQ SCH (20:43)
[2023-12-22 05:56] LABS: Glucose,Whole Blood 98 mg/dL (70-110)
[2023-12-22 07:22] VITALS: BP 141/61; RESP 17; TEMP 97.8
--- NOTE | 2023-12-22 07:42 | P.PN ---
Subjective Progress Note Date: 12/22/23 PROGRESS NOTE The patient is a 73-year-old male with a known history of multivessel stenting, history of diabetes, hypertension and hyperlipidemia who presented with symptoms of chest comfort, fatigue and dyspnea. He underwent coronary angiography that showed no significant progression of disease since 2022. He had sinus bradycardia and it was felt that that could be exacerbating his symptoms. He is feeling well this morning. He has no significant chest discomfort. His beta- candelaria was stopped yesterday. Medications: Ezetimibe 10 mg daily, aspirin, isosorbide mononitrate 60 mg daily, insulin, glipizide, simvastatin, Ozempic, Neurontin PHYSICAL EXAMINATION: Blood pressure 138/60 heart rate 37 LUNGS: Clear to auscultation HEART: Regular rate and rhythm, S1, S2. No S3. Systolic ejection murmur ABDOMEN: Soft, nontender, no organomegaly EXTREMETIES: No edema, right groin no hematoma LAB: Pending IMPRESSION: 1. Symptoms of progressive dyspnea and chest discomfort in a patient with multivessel disease. No progression of disease on his coronary angiography. His symptoms could be related to the sinus bradycardia 2. History of CAD 3. Hypertension 4. Diabetes PLAN: 1. Stop beta-blockers 2. Increase physical activity 3. Discharge home today and follow heart rate and symptoms. If he has persistent symptoms then consider PCI of the RCA 4. Depending on his progress further recommendations will be made Objective - Vital Signs Vital signs: Vital Signs Temp 97.8 F 12/22/23 07:00 Pulse 38 L 12/22/23 07:00 Resp 17 12/22/23 07:00 BP 141/61 12/22/23 07:00 Pulse Ox 100 12/22/23 07:00 FiO2 Intake & Output 12/21/23 12/22/23 12/22/23 18:59 06:59 18:59 Intake Total 460 840 Output Total 2 Balance 460 838 Weight 89.9 kg Intake: IV 100 Oral 360 840 Output: Urine 2 Other: # Voids 1 2 - Labs CBC & Chem 7: 12/21/23 10:15 12/21/23 15:56 Labs: Abnormal Lab Results - Last 24 Hours (Table) 12/21/23 12/21/23 12/21/23 Range/Units 10:14 10:15 10:15 RBC 4.24 L (4.30-5.90) m/uL BUN 23 H (9-20) mg/dL Creatinine 1.32 H (0.66-1.25) mg/dL Glucose 162 H (74-99) mg/dL POC Glucose (mg/dL) 158 H (70-110) mg/dL 12/21/23 12/21/23 12/21/23 Range/Units 15:56 17:06 19:59 RBC (4.30-5.90) m/uL BUN 21 H (9-20) mg/dL Creatinine 1.30 H (0.66-1.25) mg/dL Glucose 194 H (74-99) mg/dL POC Glucose (mg/dL) 199 H 169 H (70-110) mg/dL
[2023-12-22] MEDS: ISOSORBIDE MONONITRATE ER 60 MG TAB.ER.24H PO SCH (09:22)
[2023-12-22 10:50] VITALS: PULSE 40
== END 2023-12-22 11:39 | disposition home or self-care (01) ==
LOC: CATHCVL 09:55 → 6NMEDSUR 14:27 → CATHCVL 12-22 11:39
PROVIDERS: ATTEND Internal Medicine Interventional Cardiology
DX: I25.10 Atherosclerotic heart disease of native coronary artery without angina pectoris (principal); I10 Essential (primary) hypertension; E78.5 Hyperlipidemia, unspecified; I73.9 Peripheral vascular disease, unspecified; E11.9 Type 2 diabetes mellitus without complications; Z95.5 Presence of coronary angioplasty implant and graft; Z79.899 Other long term (current) drug therapy; Z79.84 Long term (current) use of oral hypoglycemic drugs; Z79.82 Long term (current) use of aspirin
CPT/HCPCS: 93458; 80048; 85025; C1760; C1769 ×2; C1894 ×2; J2003; J3010; Q9967; J2305

== ENCOUNTER 2024-01-13 10:15 | Day surgery (SDC) | payer MEDICARE, BC ==
[2024-01-13] MEDS: IV FLUID CONTINUATION 1,000 ML IV ONE (10:40)
[2024-01-13] MEDS: SODIUM CHLORIDE 0.9% 1,000 ML IV SCH ×2 (10:44→16:02)
[2024-01-13] MEDS: fentaNYL (PF) 50 MCG/ML 2 ML AMP IVP ONE ×4 (11:43→12:00)
[2024-01-13] MEDS: MIDAZOLAM 2 MG/2 ML VIAL IVP ONE ×4 (11:43→12:00)
[2024-01-13] MEDS: LIDOCAINE 1% INJ 10MG/ML (20 ML MDV) SQ ONE (11:46)
[2024-01-13] MEDS: ceFAZolin 1,000 MG VIAL IVPB ONE (12:30)
[2024-01-13] MEDS: HEPARIN SODIUM,PORCINE (1 ML) 2,500 UNIT in SODIUM CHLORIDE 0.9% 250 ML IRRIGATION ONE (12:43)
[2024-01-13] MEDS: ceFAZolin 1 GM in SODIUM CHLORIDE 0.9% IRRIG BTL 250 ML IRRIGATION PRN (12:44)
--- NOTE | 2024-01-13 15:36 | XR ---
EXAMINATION TYPE: XR chest 1V portable DATE OF EXAM: 01/13/2024 3:31 PM COMPARISON: None. CLINICAL INDICATION: Male, 73 years old with history of Lead placement check, TECHNIQUE: XR chest 1V portable view(s) obtained. FINDINGS: The heart size is prominent. Pacemaker is in place with 2 leads typical orientation. The pulmonary vasculature is normal. The lungs are clear. IMPRESSION: 1. Mild cardiomegaly. 2. Placement of a left pacemaker, no pneumothorax evident [facility], , 01/13/2024 3:33 PM
--- NOTE | 2024-01-13 16:05 | P.PCN ---
Description of Procedure: CARDIOLOGY PROCEDURE NOTE Car Usher: Dr. 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 The patient was taken to the cardiac catheterization suite where the left subclavian area was sterily prepped and draped in the usual fashion. One percent lidocaine was used to anesthetize the left subclavian area. A 1.5 inch incision was made utilizing a #15 blade in the left subclavian site. Hemostasis was made complete. Electrocautery along with digital blunt dissection was utilized to dissect to the level of the pectoralis muscle fascia and create a pocket large enough to accommodate the generator. A thin walled micro puncuture needle was used to cannulate the left subclavian vein. A guide-wire was inserted through the needle into the vascular lumen under fluoroscopic guidance. The needle was removed. Another thin walled micr puncture needle was used to again cannulate the left subclavian vein. A guide-wire was inserted through the needle into the vascular lumen under fluoroscopic guidance. The needle was removed and both guide-wires were attached to the field. A venous sheath and dilator were advanced over the guidewire into the vascular lumen under fluoroscopic guidance. The dilator and guidewire were then removed. A right ventricular bipolar lead was inserted into the sheath and advanced under fluoroscopic guidance into the right ventricle under fluoroscopic guidance. Adequate sensing and pacing thresholds were achieved and the lead was screwed into place in the RV apex. The sheath was then torn away. The lead collar was advanced and anchored into place utilizing #0 si lk suture. Next, another venous sheath and dilator were advanced under fluoroscopic guidance into the vascular lumen over the guidewire. After removal of the dilator and guidewire, a right atrial bipolar lead was inserted into this sheath and advanced under fluoroscopic guidance into the right atrium. The lead was positioned however he appeared to be rotated significantly. Adequate sensing and pacing thresholds were then achieved and the lead was screwed into place. The sheath was then torn away. The lead collar was advanced and anchored into place utilizing #0 silk suture. The leads were then inserted into the appropriate position into the generator. They were then secured with the setscrew provided. The leads and generator were inserted into the pocket with the leads posterior. The subcutaneous tissue was approximated utilizing #2.0 and 3.0 vicryl in an interrupted stitch fashion. The dermal layer was approximated utilizing #4.0 vicryl. The area was cleansed with sterile saline and dried. A sterile 4x4 dressing was applied and the patient was transferred to the post catheterization holding area in stable and satisfactory condition. The patient tolerated the procedure well. Generator Data Wheel Tuner: [employer] Brand: [id number] Delaney XT DR MRI Model #: [id number] Serial#: [id number] Right Atrial Bipolar Lead Data: Type: Active fixation lead Wheel Tuner: Medtronic Model#: 5076-52 Serial Number: [id number] Right Ventricular Bipolar Lead Data: Type: Active fixation lead Wheel Tuner: Medtronic Model #: 5076-58 Serial #: [id number] Stimulation Thresholds: Right atrial bipolar lead pacing and sensing thresholds Pulse Width: 1.0 ms Voltage: 1.25 Impedance: 627 ohms P-wave sensin.8 mV Right Ventricular bipolar lead pacing and sensing thresholds Pulse Width: 0.4ms Voltage: 0.5 volts Impedance: 969 ohms R-wave sensin.4 mV Parameter Setting: Pacing mode is AAIR<=>DDDR Lower rate 60 bpm Upper rate 130 bpm Impressions: 1. Successful implantation of a dual chamber permanent pacemaker in the left pectoral site. Plan: 1. Routine post procedure care will be instituted as well as outpatient follow- up surveillance.
[2024-01-13 17:38] LABS: Glucose,Whole Blood 170 mg/dL (70-110)
[2024-01-13] MEDS: glipiZIDE 10 MG TAB PO SCH (17:47)
[2024-01-13] MEDS: EZETIMIBE 10 MG TAB PO SCH (20:25)
[2024-01-13] MEDS: GABAPENTIN 300 MG CAP PO SCH (20:25)
[2024-01-13] MEDS: ASPIRIN 81 MG PO SCH (20:25)
[2024-01-13] MEDS: ATORVASTATIN 20 MG TAB PO SCH (20:25)
[2024-01-13 22:07] LABS: Glucose,Whole Blood 174 mg/dL (70-110)
[2024-01-13] MEDS: INSULIN DETEMIR (LEVEMIR) 100 UNIT/ML SYR SQ SCH (22:07)
[2024-01-14 06:00] LABS: Glucose,Whole Blood 169 mg/dL (70-110)
[2024-01-14] MEDS: ISOSORBIDE MONONITRATE ER 60 MG TAB.ER.24H PO SCH (08:02)
[2024-01-14] MEDS: ACETAMINOPHEN TAB 325 MG TAB PO PRN (08:02)
[2024-01-14 12:25] LABS: Glucose,Whole Blood 332 mg/dL (70-110)
--- NOTE | 2024-01-14 13:58 | P.DS ---
Providers Expected date of discharge: 01/14/24 Attending physician: Yvual Santiago DO Primary care physician: Alvin Vegas DO Hospital Course: Mr. Tapia is a pleasant 33-year-old gentleman who follows in the office with Dr. Coats. Had been having episodes of exertional dyspnea on exertion and chest discomfort and found to have significant symptomatic bradycardia. He underwent dual-chamber pacemaker implantation yesterday with Dr. Santiago. Device interrogation this morning showed normal device function. Incision with dressing dry and intact no significant erythema, ecchymosis or edema noted around the site. Patient is overall feeling well. He is atrial sensed ventricular paced on telemetry. Blood pressure is elevated but he has been normotensive at home. PHYSICAL EXAMINATION: HEENT: Head is atraumatic, normocephalic. Pupils equal, round. Neck is supple. There is no elevated jugular venous pressure. HEART EXAMINATION: Heart sounds regular, S1 and S2 normal. No murmur or gallop heard. CHEST EXAMINATION: Lungs are clear to auscultation and precussion. No chest wall tenderness is noted on palpation or with deep breathing. LIC site with dressing dry and intact. ABDOMEN: Soft, nontender. Bowel sounds are heard. No organomegaly noted. EXTREMITIES: 2+ peripheral pulses with no evidence of peripheral edema and no calf tenderness noted. Sling in place to the left upper extremity. NEUROLOGIC patient is awake, alert and oriented x3. Assessment 1 symptomatic bradycardia, status post dual-chamber pacemaker implantation 2 CAD status post PCI 3 hypertension 4 hyperlipidemia 5 diabetes mellitus type 2 6 CKD Plan From cardiology's perspective patient can be discharged home he will follow-up in the office next week in the device clinic. Patient advised on left arm restrictions. He will follow his blood pressure at home and let us know the trend. [employer] note has been reviewed, I agree with a documented findings and plan of care. Patient was seen and examined. Plan - Discharge Summary Discharge Rx Participant: No New Discharge Prescriptions: New Aspirin 81 mg PO HS tab Acetaminophen Tab [Tylenol] 650 mg PO Q6HR PRN tab PRN Reason: Mild Pain (Scale 1 To 3) Continue Simvastatin 40 mg PO HS Nitroglycerin Sl Tabs [Nitrostat] 0.4 mg PO DIRECTED PRN PRN Reason: Angina Isosorbide Mononitrate [Imdur] 60 mg PO DAILY Insulin Glargine,Hum.rec.anlog [Lantus Solostar Pen] 40 unit SQ HS glipiZIDE [Glucotrol] 10 mg PO AC-BID Semaglutide [Ozempic] 0.5 mg INJ SALINAS Ezetimibe [Zetia] 10 mg PO HS Gabapentin [Neurontin] 300 mg PO HS Discontinued Aspirin 81 mg PO HS Discharge Medication List Insulin Glargine,Hum.rec.anlog [Lantus Solostar Pen] 40 unit SQ HS 01/11/14 [History] Isosorbide Mononitrate [Imdur] 60 mg PO DAILY 01/11/14 [History] Nitroglycerin Sl Tabs [Nitrostat] 0.4 mg PO DIRECTED PRN 01/11/14 [History] Simvastatin 40 mg PO HS 01/11/14 [History] glipiZIDE [Glucotrol] 10 mg PO AC-BID 01/06/18 [History] Ezetimibe [Zetia] 10 mg PO HS 06/03/22 [History] Gabapentin [Neurontin] 300 mg PO HS 06/03/22 [History] Semaglutide [Ozempic] 0.5 mg INJ SALINAS 06/03/22 [History] Acetaminophen Tab [Tylenol] 650 mg PO Q6HR PRN tab 01/14/24 [Rx] Aspirin 81 mg PO HS tab 01/14/24 [Rx] Follow up Appointment(s)/Referral(s): Aisha Coats MD [STAFF PHYSICIAN] - 01/19/24 3:30 pm (Appointment is at the Device Clinic located at Cardiology's Main Office located on [address] [place] Appointment with Dr. Coats is on 02/01/24 at 1:30pm) Patient Instructions/Handouts: Pacemaker (DC) Activity/Diet/Wound Care/Special Instructions: Monitor blood pressure daily and bring readings to office visit. Discharge Disposition: HOME SELF-CARE
[2024-01-14 14:17] VITALS: BP 141/83; PULSE 81; RESP 16; TEMP 97.5
[2024-01-15] MEDS ORDERED: NON FORMULARY DRUG (Semaglutide [Ozempic] 0.25 MG/0.2 ML Each) INJ SCH (09:00)
== END 2024-01-14 15:27 | disposition home or self-care (01) ==
LOC: CATHCVL 10:15 → 6NMEDSUR 13:12 → CATHCVL 01-14 15:27
PROVIDERS: ATTEND Internal Medicine
DX: I44.1 Atrioventricular block, second degree (principal); I25.10 Atherosclerotic heart disease of native coronary artery without angina pectoris; E11.9 Type 2 diabetes mellitus without complications; I73.9 Peripheral vascular disease, unspecified; E78.2 Mixed hyperlipidemia; G47.33 Obstructive sleep apnea (adult) (pediatric); I12.9 Hypertensive chronic kidney disease with stage 1 through stage 4 chronic kidney disease, or unspecified chronic kidney disease; N18.9 Chronic kidney disease, unspecified; Z79.84 Long term (current) use of oral hypoglycemic drugs; Z79.899 Other long term (current) drug therapy
CPT/HCPCS: 33208; 71045; C1892; C1898; C1769; C1785; J2250; J1644; J0690; J2003; J3010